=== PATIENT | male | born 1960 | race Caucasian/White ===

== ENCOUNTER 2024-07-27 08:06 | Emergency (ER) | payer OTHER, SELFPAY ==
--- NOTE | 2024-07-27 08:09 | ED.SKABFB ---
HPI - Skin/Abscess/Foreign Bdy General Chief complaint: Skin/Abscess/Foreign Body Stated complaint: rash on back and front of body,pain Time Seen by Provider: 07/27/24 08:36 Source: patient and RN notes reviewed Mode of arrival: ambulatory Limitations: no limitations History of Present Illness HPI narrative: 64-year-old male presents with concern for painful rash on his chest and under his right arm. He reports rash started 4-5 days ago. He reports he has been using an [id number] topical cream without much relief. He denies general malaise, fever, aches, chills, sweats. complaint: rash Related Data Allergies Allergy/AdvReac Type Severity Reaction Status Date / Time cetirizine AdvReac Mild Other Verified 07/27/24 08:27 Review of Systems Review of Systems: CONSTITUTIONAL: Denies malaise, chills, sweats, or fever. EYES: Denies redness, or discharge. ENT: Denies rhinorrhea, congestion, swollen lips, swollen tongue CARDIOVASCULAR: Denies chest pain, palpitations, or edema. RESPIRATORY: Denies cough or dyspnea. GASTROINTESTINAL: Denies abdominal pain, nausea, vomiting SKIN: Reports painful rash on his chest and under his right arm MUSCULOSKELETAL: Denies joint pain or myalgia. NEUROLOGIC: Denies headache. All systems reviewed & are unremarkable except as noted in HPI and below PMFSH Family History Family History (Updated 02/28/17 @ 23:56 by DOCTOR UNKNOWN) Father Patient's father is in good health, Onset Age: 55 Sibling Patient's brother is in good health, Onset Age: 48 Mother Patient's mother is Social History Social History Smoking status: Never smoker Alcohol intake: never Comments At time of signature, agree with nursing past medical, surgical, social and family history. There is no relevant family history pertinent to the presenting complaint Exam Narrative: GENERAL: Well-appearing, well-nourished, and in no acute distress. HEAD: Normocephalic, atraumatic. EYES: PERRLA, conjunctivae clear, and EOMI. ENT: Mucous membranes moist. Oropharynx without edema, erythema or lesions. NECK: Supple. No lymphadenopathy CHEST: Clear to auscultation. No respiratory distress. HEART: Regular rate and rhythm. SKIN: Warm, dry. Zosteriform rash noted to the right chest and in the right axilla NEURO: Alert and oriented x3. PSYCH: Normal mood and affect Course Course Emergency Course: Patient is aware of diagnosis, understands and agrees to treatment plan. Anticipatory guidance given. Patient agrees to follow-up as directed and is aware of reasons to seek care at the emergency department. Portions of this record may have been created with voice recognition software Level of Care: Express Care Visit Vital Signs Vital signs: Reviewed. MDM - Skin/Abscess/Foreign Bdy MDM Narrative Medical decision making narrative: Does not appear at this time to be erythema multiforme, bullous, SJS, TEN; no evidence at this time to suggest RMSF, endocarditis or Lyme disease; patient looks well, nontoxic and is tolerating oral intake; no neurologic signs or symptoms; no headache, photophobia or neck pain; afebrile; appropriate for initial outpatient treatment; discussed the importance of follow-up, patient agrees; question, viral exanthema, contact dermatitis, allergic dermatitis, eczema, urticaria, shingles. No soft palate or uvula edema, no tongue, lip edema or other mucosal involvement, no respiratory compromise, no stridor, no wheezing, no wheezing, no history of syncope, no hypotension, no nausea, vomiting, or diarrhea. Instructed patient to go to nearest ER immediately for any worsening symptoms including but not limited to: fever, spreading rash, pain, sore throat, headache, dizziness, chest pain, trouble breathing, or any symptoms concerning to the patient. Critical Care Time Critical Care Time Critical Care Time: No Discharge Plan Discharge Clinical Impression: Shraddha
[2024-07-27 08:24] VITALS: BP 152/92; PULSE 78; RESP 16; TEMP 36.8; O2SAT 99
== END 2024-07-27 08:49 | disposition home or self-care (01) ==
PROVIDERS: Emergency Provider Nurse Practitioner
DX: B02.9 Zoster without complications (principal)
CPT/HCPCS: 99213; G0463